=== PATIENT | female | born 1985 | race Caucasian/White ===

== ENCOUNTER 2017-10-17 08:52 | Outpatient (RCR) | payer OTHER ==
--- NOTE | 2017-08-13 17:48 | PT INITIAL EVALUATION ---
MEDICAL DIAGNOSIS: Z48.89, M25.652 TREATMENT DIAGNOSIS: Same DATE OF ONSET: 07/24/17 SUBJECTIVE: Jessie Jiang presents to physical therapy s/p L hip scope labral repair on 07/24/17 as a result of a work related accident. She reports that the hip immobilizer was discharged 08/08/17. She reports that she is WBAT to the point of pain and if pain exists she was instructed to reduce weightbearing. She reports that she continues to have anterior iliac (ASIS) pain due to bone bruise and rates it to be 3-4/10. Furthermore, she reports that the low back pain has returned and rates it to be 2/10 and is worse with sitting. However, she states that the anterior hip pain along with the pain going down her thigh has resolved since the surgical procedure. She states that she feels stiffness in the L hip joint versus pain. She states that she is having difficulties with sitting, standing, walking, and lifting her L LE. She also reports that she is fearful of doing damage to the L hip. REHAB PROBLEM LIST: Increased Pain Decreased ROM Decreased Strength Decreased Endurance Decreased Balance Decreased Function Decreased ADL's Decreased Mobility Decreased Gait PREVIOUS MEDICAL HISTORY: See EMR OCCUPATION: Nurse at [employer] OBJECTIVE: Scope incision healing well with no signs or symptoms of infection Posture: She demonstrates minor deviation in posture such as B rounded shoulders and minimal thoracic kyphosis. ROM: L hip flexion: 65 degrees until stretch/pain, L hip extension: 10 degrees. L knee flexion: 120 degrees. L knee extension: -1. Strength: Did not test due to recent surgical intervention Palpation: TTP: ASIS: due to bone bruise, L3-L5 central and R/L lateral (low back pain with radiating pain to the R and L). Sensation: B dermatomes: L1-S1 WNL's Mobility: Modified Independent Gait: She demonstrated swing to and swing through gait with B crutches with minimal to no contact with L LE. Balance: Will test in the future ASSESSMENT: Jessie will benefit from skilled physical therapy addressing the listed impairments keeping in mind the phases of healing with her being s/p L hip labral repair in order to return to prior level of function. Short Term Goals 3 weeks: Pt will be able to ambulate independently with no L hip pain to improve function and QOL. 6 weeks: Pt will be able to ambulate independently with no L hip pain and normalized gait mechanics to return to prior level of function. 12 weeks: Pt will be able to demonstrate 4+/5 strength with core, B hip abductors, B hip extensors, B hip adductors, B quadriceps, B hamstrings, and B gastroc/soleus to return to prior level of function. Patient's Goals return to prior level of function PLAN: Patient to be seen for Manual Therapy/STM/MET Strengthening/condition Ice/Heat Range of Motion Spinal Stabilization Work Hardening/Cond Stretching Neuromuscular Re-ed Closed Chain Program Electrical Stim Posture/Body mechanics Gait Trg/Balance Trg Home Exercise Program Therapeutic Activities 1-3x/week for 4 Months If you have any questions, comments, or concerns about this report or plan, please contact me at . Thank you, Stephon Obrien, PT, DPT MTDD
--- NOTE | 2017-09-03 16:43 | PT PLAN OF CARE ---
Physician: Shan Méndez MD Appointment: 09/11/17 Patient is being seen: 1-3x/week Therapist: Melba Jang PT Medical Diagnosis: Z48.89, M25.652 Treatment Diagnosis: Same Date of Onset: 07/24/17 Date of Initial Evaluation: 08/13/17 Date patient was last seen: 09/03/17 Number of treatments: 10 Number of cancellations/No shows: 3 INTERVENTIONS: ROM.stretching, Strengthening, Manual Therapy, Gait training, HEP GOALS: 3 weeks: Pt will be able to ambulate independently with no L hip pain to improve function and QOL. (progressing) 6 weeks: Pt will be able to ambulate independently with no L hip pain and normalized gait mechanics to return to prior level of function. (not met) 12 weeks: Pt will be able to demonstrate 4+/5 strength with core, B hip abductors , B hip extensors, B hip adductors, B quadriceps, B hamstrings, and B gastroc/ soleus to return to prior level of function. (not met) PATIENT'S GOAL: Return to prior level of function (progressing) Patient Compliance: Good Prognosis: Excellent Reasons for continuing therapy: S: Jessie reports her L hip has minimal pain except for yesterday when she had to stand and walk more than she has in a while. Hip pian is now 4/10, ache. O: ROM: L hip flexion: 80 degrees, extension: 20 degrees, rotation NT. Strength: Single leg squat L 75 deg., R 105 degrees. Calf R 4+/5, R 4-/5, core strength 2/5. Gait: Mild L hip hiking, reduced L pelvic WS in L stance with independent gait on the level. Palpation: Painful psoas tendon at lesser tubercle and greater trochanter bursa (no edema). Special Tests: Jessie uses lumbar extension and hip hiking substitution with L hip AROM unless cued. Mobility: Independent A/P: Jessie Jiang is progressing with ROM, strengthening and gait but isn't to prior level of function. We'll follow your hip arthroscopic labral repair protocol unless you advise otherwise, 1-3x/week. Thank you. [place]
[~2017-10-17 08:52] MED LIST: AMOX-559 PO; CETI10CA8 PO; CITA-137 PO; DIPH0.5D21 IM; FLUC150T40 PO; IBUP800T37 PO; KET10 PO; MELO-207 PO; METH4TAB66 PO; ONDA4TAB97 PO; OXYC-373 PO; OXYC-865 PO; PANT40TA65 PO; POLY17PO25 PO; PROM-110 PO; SUMA25TA26 PO; TRAM-420 PO; [UNRECOGNIZED DRUG - CODE] IM ONLY; [UNRECOGNIZED DRUG - OTHER] PO; [UNRECOGNIZED DRUG - OTHER] TD
[2017-10-17] MEDS ORDERED: PANT40TA65 PO (09:45)
[2017-10-17] MEDS ORDERED: FLUT16SP19 NS (09:45)
[2017-10-17] MEDS ORDERED: CITA-137 PO (09:45)
== END 2017-10-17 18:00 | disposition home or self-care (01) ==
LOC: PT 08:52
PROVIDERS: ATTEND Orthopaedic Surgery Sports Medicine
DX: Z47.89 Encounter for other orthopedic aftercare (principal); M25.652 Stiffness of left hip, not elsewhere classified
CPT/HCPCS: 97161

== ENCOUNTER → 2017-12-12 | Outpatient (CLI) | payer OTHER ==
[~2017-12-12] MED LIST changes: +FLUT16SP19 NS; +ONDA4TAB PO
[2017-12-12 09:47] LABS: PLATELET COUNT, AUTOMATED 251 K/uL (150-450)
--- NOTE | 2017-12-15 08:39 | RADIOLOGY IMAGING REPORT ---
[place] [facility] [place] Jessie Jiang : 1985 MR: [id number] V: [id number] EXAM DATE: ORDERING PHYSICIAN: NIA GOOD TECHNOLOGIST: [facility] Patient: Jessie Jiang : 1985 Visit/Account:[id number] Date of Sevice: 12/12/2017 Abdominal ultrasound Indication: Abdominal pain Comparison: 02/12/2017 Findings: Liver is normal in size, contour, and echotexture and measures 13.0 cm in length. There is normal hep atopedal portal venous flow. The spleen is normal in size, contour, and echotexture and measures 10.3 cm in length. Gallbladder wall thickness is 2.9 mm with no evidence of shadowing stone or sludge within the gallbla dder lumen. Positive sonographic Browning's sign reported by the technologist. Common duct measures 4.9 mm in maximum diameter with no evidence of shadowing stone. The head and proximal body of the pancreas is unremarkable. The distal body and tail is obscured by o verlying bowel gas. Abdominal aorta and IVC are patent and unremarkable. The bilateral kidneys are normal in size, contour, and echotexture with the right kidney measuring 1 0.4 cm and the left kidney measuring 9.8 cm. IMPRESSION: 1. There is no evidence of cholelithiasis, however, there is mild wall thickening of the gallbladder and a positive sonographic Browning sign. Findings may represent acute acalculous cholecystitis. Pal mmend clinical correlation. Comments: Findings were reviewed with Dr. Good's nurse Report Dictated By: Raul Mai at 12/12/2017 1:54 PM Report E-Signed By: Raul Mai at 12/15/2017 8:34 AM WSN:[email or web address]
== END ==
LOC: LAB 09:23
PROVIDERS: ATTEND Internal Medicine
DX: R19.8 Other specified symptoms and signs involving the digestive system and abdomen (principal); R10.9 Unspecified abdominal pain
CPT/HCPCS: 36415; 76700; 81001; 82040; 82150; 82247; 82310; 82374; 82435; 82565; 82947; 83690; 84075; 84132; 84155; 84295; 84443; 84450; 84460; 84520; 85025

== ENCOUNTER → 2017-12-15 | Outpatient (CLI) | payer OTHER ==
[~2017-12-15] MED LIST changes: +HYDR-4309 PO; +SINCALIDE 5 MCG VIAL INJ ONE
--- NOTE | 2017-12-15 16:16 | RADIOLOGY IMAGING REPORT ---
FACILITY: [facility] [place] PATIENT NAME: Jessie Jiang : 1985 MR: [id number] V: [id number] EXAM DATE: ORDERING PHYSICIAN: PASTOR JEAN TECHNOLOGIST: Location: [facility] Patient: Jessie Jiang : 1985 Visit/Account:[id number] Date of Sevice: 12/15/2017 Examination: GALLBLADDER W KINEVAC Comparison: None. History: Right upper quadrant pain. Procedure: Standard focused sonographic evaluation of the gallbladder is performed before and after C CK administration. Gallbladder volumes are determined at multiple time points and gallbladder ejectio n fraction was calculated. FINDINGS: Grayscale imaging of the gallbladder is unremarkable with no evidence of stone or sludge. N o wall thickening or pericholecystic fluid. Visualized common bile duct is within normal limits. Prior to CCK injection gallbladder volume is 26.5 mL. Maximum gallbladder contraction occurred at 10 minutes following injection; gallbladder volume at this time point is 9.8 mL. Gallbladder ejection fr action is calculated to be 63%. CCK administration resulted in nausea, abdominal pain, and dry heaving. This is of uncertain signifi cance given the otherwise unremarkable evaluation of the gallbladder and biliary system and in some p atients, abdominal pain is a side effect to the administration of exogenous CCK. IMPRESSION: 1. Negative sonographic evaluation of the gallbladder and common bile duct. 2. Gallbladder ejection fraction of 63%. Results were discussed with PASTOR JEAN at 12/15/2017 4:10 PM. Report Dictated By: Nadeem Avila MD at 12/15/2017 4:05 PM Report E-Signed By: Nadeem Avila MD at 12/15/2017 4:11 PM WSN:[id number]
== END ==
LOC: US 14:40
PROVIDERS: ATTEND Surgery
DX: R10.11 Right upper quadrant pain (principal)
CPT/HCPCS: 76705; J2805

== ENCOUNTER 2017-12-16 00:33 | Day surgery (SDC) | payer OTHER ==
[~2017-12-16] VITALS: Ht 161.3 cm; Wt 50.3 kg
[~2017-12-16 00:33] MED LIST changes: -HYDR-4309 PO; -SINCALIDE 5 MCG VIAL INJ ONE
--- NOTE | 2017-12-16 03:44 | NACHTIGAL H&P ---
DATE OF ADMISSION: December 16, 2017 CHIEF COMPLAINT Right upper quadrant pain. HISTORY OF PRESENT ILLNESS This is a 32-year-old female with a one-year history of intermittent upper abdominal pain. Recently she had a more severe episode of that pain. It was in the right upper back and across her right subcostal area. She had associated nausea. This has been quite severe, and she has been not eating well since. She is afraid to eat because of the symptoms. She has a lot of belching with this, which has been quite severe. She has tried Protonix with no relief. She has had no relief with simethicone. She has had loose but not diarrheal stools. She had an ultrasound which did not show any stones or sludge , but the wall may have been slightly thickened. She then underwent an ultrasound with a cholecystokinin stimulation, which showed contractility of the gallbladder to be normal, however, she had immediate reproduction of her symptoms, and her symptoms were quite severe with a lot of pain and nausea and vomiting. ALLERGIES BENADRYL and CODEINE. CURRENT MEDICATIONS 1. Citalopram. 2. Protonix. PAST MEDICAL HISTORY/OPERATIONS She has had a laparoscopy, a left hip arthroplasty and a uterine ablation. REVIEW OF SYSTEMS No cardiac, pulmonary, liver or kidney disease, diabetes or hypertension. No history of deep vein thrombosis. PHYSICAL EXAMINATION LUNGS: Clear. HEART: Regular rhythm. ABDOMEN: She has mild tenderness in the upper abdomen. IMPRESSION Acalculous cholecystitis. PLAN Recommend proceeding with a laparoscopic cholecystectomy with cholangiogram. We discussed the procedure, complications, recovery time, possibility that this may not relieve her pain. She seems to understand and wishes to proceed. [place]
[2017-12-16] MEDS ORDERED: IOPAMIDOL 61% 75 ML INFUS BTL 75 ML ONE (06:47)
[2017-12-16] MEDS ORDERED: ROPIVACAINE 0.2% 20 ML VIAL ONE (06:47)
[2017-12-16] MEDS ORDERED: KET10 PO (09:55)
[2017-12-16] MEDS ORDERED: HYDR-4309 PO (09:55)
--- NOTE | 2017-12-16 09:55 | Post Operative Progress Note ---
Post Operative Progress Note Date: Dec 16, 2017 Time: 12:19 Surgeon: bree Anesthesia: dr samosn Pre-Op Diagnosis: cholecystitis Post-Op Diagnosis: same Procedure(s): lap morro with PASTOR Marcos MD Dec 16, 2017 09:55
--- NOTE | 2017-12-16 09:57 | Short(Outpt) Discharge Summary ---
Discharge Summary Reason for Hosp/Final Diag: (1) Acute cholecystitis Hospital Course & Plan: lap morro with gram Departure Discharge to: Home Discharge Instructions Home Meds Active Scripts Hydrocodone Bit/Acetaminophen (NORCO 5-325 TABLET) 1 Each Tablet, 1 EACH PO Q4H Y for PAIN, #30 TAB Prov:PASTOR JEAN MD 12/16/17 Ketorolac Tromethamine (KETOROLAC TROMETHAMINE) 10 Mg Tab, 10 MG PO Q6H, #20 TAB Prov:PASTOR JEAN MD 12/16/17 Pantoprazole Sodium (PANTOPRAZOLE SODIUM) 40 Mg Tablet.dr, 40 MG PO QDAY, #30 TAB.SR 6 Refills Prov:NIA ELIAS MD 10/17/17 Citalopram Hydrobromide (CITALOPRAM HBR) 10 Mg Tablet, 1 TAB PO QDAY, #90 TAB 3 Refills Prov:NIA ELIAS MD 10/17/17 Discontinued Reported Medications Cetirizine Hcl (ZYRTEC) 10 Mg Capsule, 10 MG PO PRN, CAPSULE 04/03/17 Discontinued Scripts Tramadol Hcl (TRAMADOL HCL) 50 Mg Tablet, 50 MG PO QID Y for pain, #30 TAB Prov:NIA ELIAS MD 12/12/17 Ondansetron (ZOFRAN ODT) 4 Mg Tab.rapdis, 1-2 TAB PO Q12H Y for nausea, #30 TAB.NEERAJ Prov:NIA ELIAS MD 12/12/17 Fluticasone Prop 50 Mcg Ns (FLONASE 50 MCG NS) 16 Gm [place].susp, 2 SPRAYS NS QDAY, #1 BOT 1 Refill Prov:NIA ELIAS MD 10/17/17 Diet: Regular Activity: As Tolerated Special Instructions: ice to incision for 48 hours remove bandage and shower to see me in one week, call [phone] for apt PASTOR JEAN MD Dec 16, 2017 09:57
[2017-12-16] MEDS: NORMOSOL R SOLN(*) 1000 ML BAG 1,000 ML IV PRN ×2 (10:33→13:24)
[2017-12-16] MEDS ORDERED: fentaNYL CITR 250 MCG/5 ML AMP ONE (10:36)
[2017-12-16] MEDS ORDERED: LIDOCAINE MPF 1% 5 ML VIAL ONE (10:38)
[2017-12-16] MEDS ORDERED: PROPOFOL EMUL(*) 10MG/ML 20 ML 20 ML ONE (10:38)
[2017-12-16] MEDS ORDERED: LIDOCAINE/SOD BICARB 8.4% SYR ID ONE (10:55)
[2017-12-16] MEDS ORDERED: MIDAZOLAM 2 MG/2 ML VIAL IVP PRN (10:55)
[2017-12-16] MEDS ORDERED: FAMOTIDINE 20 MG TAB PO ONE (10:55)
[2017-12-16] MEDS ORDERED: cefOXitin/DEX(*) 1GM/50ML PREM 50 ML IVPB ONE (10:55)
[2017-12-16 10:57] VITALS: BP 126/86
[2017-12-16] MEDS ORDERED: DEXAMETHASONE SOD 4 MG/ML VIAL ONE (11:28)
[2017-12-16] MEDS ORDERED: KETOROLAC 30 MG/ML VIAL ONE (11:31)
[2017-12-16] MEDS ORDERED: ONDANSETRON 4 MG/2 ML VIAL ONE ×2 (11:31→13:26)
[2017-12-16] MEDS ORDERED: ROCURONIUM BROM 10 MG/ML 5 ML ONE (12:00)
[2017-12-16] MEDS ORDERED: SUGAMMADEX SOD 200 MG/2 ML SDV ONE (12:00)
[2017-12-16] MEDS ORDERED: PROMETHAZINE 25 MG/ML 1 ML AMP ONE (12:27)
--- NOTE | 2017-12-16 12:41 | RADIOLOGY IMAGING REPORT ---
FACILITY: [facility] PATIENT NAME: Jessie Jiang : 1985 MR: [id number] V: [id number] EXAM DATE: ORDERING PHYSICIAN: PASTOR JEAN TECHNOLOGIST: Location: [facility] Patient: Jessie Jiang : 1985 Visit/Account:[id number] Date of Sevice: 12/16/2017 EXAMINATION: Interoperative Cholangiogram 12/16/2017 6:54 AM HISTORY: CHOLECYSISITIS COMPARISON: Ultrasound 12/15/2017 FLUOROSCOPY TIME: 10.6 seconds DOSE: DAP was 0.71625 mGy*m2. FINDINGS: Intraoperative fluoroscopy was provided. Imaging demonstrates intraoperative cholangiogra m with contrast injection via the cystic duct remnant. Visualized bile ducts are unremarkable in kelly earance without focal stricture or irregularity. No visible choledocholithiasis. Free spill into th e duodenum is shown. IMPRESSION: Unremarkable intraoperative cholangiogram. Report Dictated By: Cruz Arnold MD at 12/16/2017 12:33 PM Report E-Signed By: Cruz Arnold MD at 12/16/2017 12:35 PM WSN:[email or web address]
[2017-12-16] MEDS ORDERED: fentaNYL CITR 100 MCG/2 ML AMP ONE (12:51)
[2017-12-16] MEDS ORDERED: APAP/HYDROCODONE 325/5 TAB ONE (13:44)
[2017-12-16 13:55] VITALS: BP 125/79
[2017-12-16 14:26] VITALS: BP 108/74
[2017-12-16 14:46] VITALS: BP 112/76
[2017-12-16 14:48] VITALS: BP 121/79
--- NOTE | 2017-12-16 21:25 | OPERATIVE REPORT 1 ---
EVENT DATE: December 16, 2017 SURGEON: Jean Paul Ordonez MD ANESTHESIOLOGIST: Francisco Patten MD ANESTHESIA: General. PREOPERATIVE DIAGNOSIS Acute cholecystitis. POSTOPERATIVE DIAGNOSIS Acute cholecystitis. PROCEDURE PERFORMED Laparoscopic cholecystectomy with intraoperative cholangiogram. DESCRIPTION OF PROCEDURE The patient was placed in the supine position and given general anesthetic. Her abdomen was prepped and draped in a sterile fashion. The skin was anesthetized with 0.2% ropivacaine. A small incision was made above the umbilicus. A Veress needle was inserted. The abdomen was insufflated with CO2. A 5 mm port was placed under direct vision. We then placed two 5 mm ports in the right subcostal region and a 10 mm port in the epigastrium under direct vision. The gallbladder was grasped and raised cephalad. We dissected out the cystic duct-gallbladder junction and placed a clip there. We opened the cystic duct, inserted a Taut catheter, and obtained cholangiograms which were normal. The clip was removed. The Taut catheter was removed. The cystic duct was triply clipped proximally and transected. The cystic artery was dissected out, clipped proximally and distally, and transected. She had a couple of branches, and these were clipped individually. We then used electrocautery and dissected the gallbladder from the bed of the liver. This dissection went very nicely. We had excellent hemostasis. The gallbladder was placed in an Endo Pouch and removed from the field. We inspected for bleeding. None was noted. The ports were removed under direct vision. No bleeding was noted. The skin was closed with interrupted 4-0 Maxon. Steri-Strips and an Airstrip were placed. [place]
== END 2017-12-16 13:55 | disposition home or self-care (01) ==
LOC: OR 00:33
PROVIDERS: ATTEND Surgery
DX: K81.0 Acute cholecystitis (principal)
CPT/HCPCS: 47563; 74300; 88304; J0694; J1100; J1885; J2001; J2250; J2405; J2550; J2704; J2795; J3010; Q9967

== ENCOUNTER → 2018-06-22 | Outpatient (CLI) | payer OTHER ==
[~2018-06-22] MED LIST changes: -DIPH0.5D21 IM; +DIPH0.5S4 IM; +HYDR-4309 PO; +RIZA10TA24 PO
[2018-06-22 09:27] LABS: PLATELET COUNT, AUTOMATED 260 K/uL (150-450)
[2018-06-22 09:55] LABS: LDL CHOLESTEROL 87 mg/dl
== END ==
LOC: LAB 09:04
PROVIDERS: ATTEND Internal Medicine
DX: K21.9 Gastro-esophageal reflux disease without esophagitis (principal); G43.909 Migraine, unspecified, not intractable, without status migrainosus; R10.9 Unspecified abdominal pain; R11.0 Nausea
CPT/HCPCS: 36415; 81001; 82040; 82247; 82310; 82374; 82435; 82465; 82565; 82947; 83718; 84075; 84132; 84155; 84295; 84443; 84450; 84460; 84478; 84520; 85025

== ENCOUNTER → 2019-01-07 | Outpatient (CLI) | payer OTHER ==
[~2019-01-07] MED LIST changes: +ALBU8.5H IH; +AZIT-17 PO; +CITA-145 PO; +EREN70AU2 SUBQ; +FLUT1AER INH; -HYDR-4309 PO; +HYDR-653 PO; +PRED-420 PO; +PRED20TA6 PO; +TOPI-120 PO
--- NOTE | 2019-01-07 11:02 | RADIOLOGY IMAGING REPORT ---
[place] [facility] [place] Jessie Jiang : 1985 MR: [id number] V: [id number] EXAM DATE: ORDERING PHYSICIAN: NIA ELIAS TECHNOLOGIST: Location: Patient: Jessie Jiang : 1985 Visit/Account:[id number] Date of Sevice: 01/07/2019 Exam type: CHEST PA LAT History: Chronic cough for approximately two weeks Comparison: October,. Findings: The lungs are free of acute effusions, infiltrates or edema. The cardiac but is normal in size. The re is no evidence of a pneumothorax or pneumomediastinum. There Is a gentle S-shaped scoliosis of th e thoracic spine IMPRESSION: 1. No acute cardiopulmonary process is seen Report Dictated By: Poly Cherry MD at 01/07/2019 10:55 AM Report E-Signed By: Poly Cherry MD at 01/07/2019 10:57 AM WSN:[email or web address]
== END ==
LOC: RAD 10:00
PROVIDERS: ATTEND Internal Medicine
DX: M41.84 Other forms of scoliosis, thoracic region (principal)
CPT/HCPCS: 71046